=== PATIENT | female | born 2000 | race Caucasian/White ===

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

== ENCOUNTER 2022-04-25 17:25 | Emergency (ER) | payer BC ==
[~2022-04-25] VITALS: Ht 152.4 cm; Wt 54.5 kg
[2022-04-25] MEDS ORDERED: ONDANSETRON 4MG 2ML VIAL IV ONE (18:35)
[2022-04-25] MEDS ORDERED: KETOROLAC 30 MG/ML 1ML VIAL IV ONE (18:35)
[2022-04-25] MEDS ORDERED: NS 1,000 ML IV ONE (18:35)
[2022-04-25 19:18] LABS: BASO # 0.1 10^3/uL (0.0-0.2); BASO % 0.4 % (0.0-1.0); EOS # 0.1 10^3/uL (0.0-0.5); EOS % 0.5 % (0.0-3.0); HEMATOCRIT 32.2 % (36.0-47.0); LYMPH # 1.8 10^3/uL (1.5-5.0); MEAN CORPUSCULAR HEMOGLOBIN 19.8 pg (27.0-33.0); MEAN CORPUSCULAR HGB CONC 31.1 g/dl (32.0-36.5); MEAN CORPUSCULAR VOLUME 63.9 fl (80.0-96.0); MONO # 1.1 10^3/uL (0.0-0.8); MONO % 8.2 % (2.0-8.0); NEUTROPHILS % 76.4 % (36.0-66.0); PLATELET COUNT, AUTOMATED 279 10^3/uL (150-450); RED BLOOD COUNT 5.04 10^6/uL (4.00-5.40); WHITE BLOOD COUNT 13.1 10^3/uL (4.0-10.0)
[2022-04-25] MEDS ORDERED: ISOVUE-370 76% 100ML VIAL As Ordered ONE (19:36)
[2022-04-25 19:52] LABS: ALBUMIN 3.7 GM/DL (3.2-5.2); ALT/SGPT 21 U/L (12-78); BILIRUBIN,DIRECT 0.2 MG/DL (0.0-0.2); LIPASE 86 U/L (73-393); TOTAL PROTEIN 7.4 GM/DL (6.4-8.2)
[2022-04-25 20:01] LABS: MONO SCRN NEGATIVE (NEGATIVE)
[2022-04-25] MEDS ORDERED: MIRA3350 PO (21:05)
[2022-04-25] MEDS ORDERED: ACETAMINOPHEN 325 MG TAB PO ONE (21:20)
[2022-04-25 21:33] VITALS: BP 116/57
== END 2022-04-25 21:34 | disposition home or self-care (01) ==
LOC: M ED 17:25
DX: T18.2XXA Foreign body in stomach, initial encounter (principal)
CPT/HCPCS: 74177; 80047; 80076; 81000; 81015; 83690; 84702; 85025; 86308; 87086; 87486; 87581; 87633; 87798; 96361; 96374; 96375; 99284; J1885; J2405; Q9967

== ENCOUNTER 2022-08-11 21:52 | Emergency (ER) | payer BC ==
[~2022-08-11] VITALS: Ht 152.4 cm; Wt 56.8 kg
[~2022-08-11 21:52] MED LIST changes: +MIRA3350 PO
[2022-08-12 02:09] VITALS: BP 118/56
== END 2022-08-12 05:31 | disposition left against medical advice (07) ==
LOC: M ED 21:52
DX: Z53.21 Procedure and treatment not carried out due to patient leaving prior to being seen by health care provider (principal)